=== PATIENT | female | born 1940 | race Two or more races ===

== ENCOUNTER → 2019-05-16 | Day surgery (SDC) | payer OTHER ==
[~2019-05-16] MED LIST: CITA40TA5 PO; CYCL1DRO OP; IV RINGERS,LACTATED 1000ML 1,000 ML IV ONE; IV RINGERS,LACTATED 1000ML 1,000 ML IV SCH; LIDOCAINE 2% PF 5 ML VIAL. ONE; PANT20TA2 PO; PROPOFOL 20 ML IV ONE
[2019-05-16 11:55] VITALS: BP 119/58
--- NOTE | 2019-05-19 15:07 | PATHOLOGY ---
[facility] Accession Number: [id number] . 01 Material submitted: . stomach - ANTRAL BIOPSY . 01 Clinical history: . Abdominal pain. . 02 Diagnosis: Gastric biopsy, antrum: - Chronic gastritis, mild. . (JPM:[facility]; 05/19/2019) [facility] 05/19/2019 0857 Local . 02 Comment: Sections of the gastric antral biopsy show congestion and mild chronic inflammation. A properly controlled immunoperoxidase stain for Helicobacter is negative for Helicobacter organisms. There is no evidence of malignancy. (JPM:[facility]; 05/19/2019) . . Special stain performed: Immunoperoxidase stain for Helicobacter on A1 . 02 Electronically signed: . Jordan Mathis MD, Pathologist NPI- [id number] . 01 Gross description: . Received in formalin labeled "Stewart, Louise, antral BX rule out H. pylori" is a 0.6 x 0.4 x 0.1 cm fragment of kirby-brown mucosa. The specimen is submitted in A1. ([facility]; 05/17/2019) [facility] 05/17/2019 1005 Local . 02 Pathologist provided ICD-10: K29.50 . 02 CPT . 835952, [id number] Specimen Comment: A courtesy copy of this report has been sent to [phone], [phone] Specimen Comment: [phone] Specimen Comment: Report sent to and Performed at: 01 [facility] [address], [place] [id number] MD Derrek Leigh MD Phone: [phone] Performed at: 02 [facility] [id number] MD Jordan Mathis MD Phone: [phone]
== END ==
LOC: SURG 09:46
PROVIDERS: ATTEND Surgery
DX: R11.0 Nausea (principal); K29.50 Unspecified chronic gastritis without bleeding; K44.9 Diaphragmatic hernia without obstruction or gangrene; E78.00 Pure hypercholesterolemia, unspecified; F32.9 Major depressive disorder, single episode, unspecified; M54.30 Sciatica, unspecified side; Z87.39 Personal history of other diseases of the musculoskeletal system and connective tissue; Z90.710 Acquired absence of both cervix and uterus; Z98.890 Other specified postprocedural states
CPT/HCPCS: 43239; 88305; 88342; J2001; J2704